=== PATIENT | female | born 1970 | race African-American/Black ===

== ENCOUNTER → 2020-05-09 | Outpatient (CLI) | payer BC ==
--- NOTE | 2020-05-14 11:24 | RAD ---
DATE: 05/09/2020 8:38 AM EXAM: MAMMO PILAR SCREENING BILATERAL HISTORY: Screening COMPARISON: 06/21/2018 Bilateral CC and MLO views of the breasts were performed. Bilateral breast tomosynthesis was performed in CC and MLO projections. This study was interpreted with the benefit of Computerized Aided Detection (CAD). FINDINGS: Breast Density: SCATTERED The breast parenchyma shows scattered fibroglandular densities. Breast parenchyma level B Negative right mammogram. Left mammogram shows an oval partly circumscribed partly obscured 11 mm long mass with central coarse calcification in the lateral posterior left breast, best seen on image 22 cc tomographic series. This is not as well seen on the MLO view. It likely however is favored to be in the lower-outer quadrant.. It cannot be confirmed stable. A full-field left ML view and targeted left breast ultrasound are recommended. IMPRESSION: Left breast mass, findings for which additional imaging is advised. BI-RADS CATEGORY: 0 INCOMPLETE: NEEDS ADDITIONAL IMAGING EVALUATION AND/OR PRIOR MAMMOGRAMS FOR COMPARISON. RECOMMENDED FOLLOW-UP: ADD ADDITIONAL IMAGING The patient will be contacted to return for additional imaging and a supplemental report will follow. PQRS compliance statement: Patient information was entered into a reminder system with a target due date for the next mammogram. Mammography is a sensitive method for finding small breast cancers, but it does not detect them all and is not a substitute for careful clinical examination. A negative mammogram does not negate a clinically suspicious finding and should not result in delay in biopsying a clinically suspicious abnormality. "Our facility is accredited by the [employer] Mammography Program."
== END ==
LOC: MAMMO 08:28
PROVIDERS: ATTEND Family Medicine
DX: Z12.31 Encounter for screening mammogram for malignant neoplasm of breast (principal); N63.20 Unspecified lump in the left breast, unspecified quadrant
CPT/HCPCS: 77063; 77067

== ENCOUNTER → 2020-05-23 | Outpatient (CLI) | payer BC ==
--- NOTE | 2020-05-23 20:16 | RAD ---
Examination: 1. Left digital diagnostic mammogram. 2. Targeted left breast ultrasound. INDICATION: Screening recall for asymmetry in the upper outer left breast COMPARISON: 05/09/2020, 06/21/2018 mammograms TECHNIQUE: Full field left ML view as well as spot compression views of the left breast in the CC projection were obtained. Computer-aided detection utilized. Targeted ultrasound of the upper outer quadrant left breast was subsequently pursued. FINDINGS: Additional mammographic views of the left breast show heterogeneously dense breast parenchyma with a changing configuration of the questioned asymmetry in a pattern suggesting overlap of fibroglandular tissue. It did not fully resolve however so ultrasound of the left breast was subsequently pursued. This revealed a ridge of dense echogenic fibroglandular tissue with two small (3 mm) cysts in the 2:00 position 4 and 5 cm from the nipple that are incidental benign findings. No suspicious sonographic findings. A cluster of cysts in the deep posterior left breast at the 3:00 position 8 cm from the nipple corresponds with nodularity in the posterior left breast near the area of mammographic interest. No suspicious sonographic findings identified. IMPRESSION: Benign findings Recommend return to screening BI-RADS Category 2 Benign findings Patient entered into a reminder system with targeted due date for next mammogram Electronically signed by: Sara Mac MD (05/23/2020 8:13 PM) [facility] [place]
== END ==
LOC: MAMMO 09:50
PROVIDERS: ATTEND Family Medicine
DX: N60.02 Solitary cyst of left breast (principal)
CPT/HCPCS: 76641; 77065

== ENCOUNTER → 2021-06-01 | Outpatient (CLI) | payer BC ==
--- NOTE | 2021-06-01 17:22 | RAD ---
Bilateral digital screening 2-D and 3-D (digital breast tomosynthesis) mammogram: Reason for examination: Routine screening. Comparison: Mammograms from 06/21/2018, 05/23/2020 and 05/09/2020. Left breast ultrasound from 0. Interpretation was made with the benefit of CAD. FINDINGS: Breast density: Category B. There are scattered areas of fibroglandular density. No suspicious breast mass, malignant appearing calcifications, or architectural distortion is seen. T here is been improvement in the cluster of cysts in the 3:00 position of the left breast, 8 cm from t he nipple. Again seen is a tiny mass in the 2:00 position of the left breast, 3 cm from the nipple wh ich may be due to a complicated cyst or fibroadenoma. IMPRESSION: No evidence of malignancy. Assessment: BI-RADS 2, benign findings. Recommendation: Routine screening mammograms. The patient will receive a letter with the results in the mail. Patient information will be entered i nto the mammography reminder system with a target recall date for the next mammogram. A reminder emilio er will be generated. Electronically signed by: Shania Lew MD (06/01/2021 5:19 PM) [id number]
== END ==
LOC: MAMMO 09:48
PROVIDERS: ATTEND Family Medicine
DX: Z12.31 Encounter for screening mammogram for malignant neoplasm of breast (principal)
CPT/HCPCS: 77063; 77067